=== PATIENT | male | born 1935 | race Caucasian/White ===

== ENCOUNTER 2022-11-21 09:38 | Emergency (ER) | payer MEDICARE, MEDICAID, SELFPAY ==
[2022-11-21] VITALS (12 sets, daily range): BP systolic 114–135; BP diastolic 64–88; PULSE 78–95; RESP 18–30; TEMP 36.8; O2SAT 95–99
--- NOTE | 2022-11-21 09:49 | W.ED.GENAD ---
Discharge Plan Disposition Patient Disposition: Home Condition: Stable Discharge Details Clinical Impression: Rash, Cellulitis of neck Primary Care Provider: Unknown,Unknown ED Provider: Debora Moe Home Meds and New Rx's Prescriptions: New prednisone 20 mg tablet See Rx Instructions .ROUTE .COMPLEX Qty: 18 0RF Rx Instructions: Take 3 tabs daily for 3 days, then 2 tabs daily for 3 days, then 1 tab daily for 3 days. clindamycin HCl 150 mg capsule 450 mg PO TID 7 Days Qty: 63 0RF Continued quetiapine 25 mg Tablet 25 mg PO HS latanoprost 0.005 % Drops 1 drp ophthalmic (eye) HS atorvastatin 80 mg Tablet 80 mg PO HS valacyclovir 1 gram Tablet 1,000 mg PO BID metoprolol succinate 100 mg Tablet Extended Release 24 Hr 100 mg PO DAILY amlodipine 5 mg Tablet 5 mg PO DAILY doxepin 10 mg Capsule 10 mg PO HS aspirin 81 mg Tablet,Delayed Release (Dr/Ec) 81 mg PO DAILY acetaminophen 500 mg Tablet 500 mg PO PRN PRN tamsulosin 0.4 mg Capsule 0.4 mg PO DAILY lisinopril 10 mg Tablet 10 mg PO DAILY brimonidine 0.2 % Drops 1 drp ophthalmic (eye) BID betamethasone dipropionate 0.05 % Cream 1 applic TOPICAL DAILY dorzolamide-timolol 22.3-6.8 mg/mL Drops 1 drp ophthalmic (eye) BID furosemide 20 mg Tablet 20 mg PO DAILY acetylcysteine [NAC] 600 mg Capsule 600 mg PO DAILY melatonin 5 mg Tablet 5 mg PO HS Discontinued prednisone 10 mg Tablet 10 mg PO DAILY doxycycline hyclate 100 mg Tablet 100 mg PO BID Discharge Instructions Instructions: Shingles (ED), Cellulitis (ED), Dermatitis (ED) Additional Instructions: Your rash may be consistent with shingles. It may be becoming secondarily infected with bacteria secondary to scratching allowing bacteria to enter the open wounds and cause a local skin infection. Drink plenty of fluids and get plenty of rest. Take Benadryl as needed and directed for itching. You are being sent home with a prescription for a higher dose of a steroid to take as directed until finished. Stop taking your current steroid dose of 10 mg. You are also being sent home with an antibiotic to take as directed until finished. Stop taking your current antibiotic doxycycline. Your urine sample shows some white blood cells. A urine culture is pending and you will be notified if it is positive for a urinary tract infection. Your CT neck imaging noted edema within the soft tissues but no evidence of abscess or other fluid collection. Your CT scan of your chest today showed no evidence of acute disease. You also tested negative for COVID, influenza and RSV. Call your bench manager to schedule follow-up appointment for reevaluation and for possible biopsy of your skin rash for further evaluation. Return immediately to the emergency department if you develop any worsening or new concerning symptoms. Discharge Data Discharge Date/Time-TO BE ENTERED AT DEPARTURE: 11/21/22 14:34 Discharge Physician: Debora Moe Medical Decision Making 1000 -- 87-year-old male with a history of hypertension, hyperlipidemia, pulmonary embolism, delusional disorder, BPH, anemia who resides at [facility] and presents for evaluation of a right-sided neck mass, right-sided neck lump and wheezing. Nursing staff from [facility] reports that patient has been seen at [facility] ER 3 times and diagnosed with shingles but they state his symptoms are worsening and they would like him reevaluated. Patient is oriented to person and place but not time. He is continually scratching the rash on the right side of his neck. The rash could certainly be consistent with shingles that may be secondarily infected due to frequent scratching. There are areas of excoriation and hyperpigmentation with pink granulation tissue. There is no evidence of abscess. There are areas of bleeding. I do not see an obvious circumscribed lump although the right side of his neck appears slightly more swollen. He does appear to have upper airway wheezing. Lungs are clear throughout. His oxygen saturation is 97% on room air. Will obtain screening labs, CT neck and CT chest. 1200 -- Labs and imaging reviewed. White blood cell count within normal limits. Normal electrolytes. Troponin negative. CT chest without contrast negative for acute findings. CT neck with contrast notes subcutaneous edema in the neck, right upper chest and right back but no evidence of abscess. Case discussed with Lali nursing attendant at [facility] --she states that patient was noted to have new onset of right-sided neck swelling and worsening weakness. She states he has been seen at [facility] a few times for increasing weakness and falls and diagnosed with shingles. She states he has been seen previously by dermatology and has been taking prednisone and doxycycline for his rash. Due to this complaint of weakness, will obtain a urinalysis. Discussed that his presentation could appear consistent with shingles with an overlying cellulitis. As he had no improvement with doxycycline, will switch to clindamycin. We will start a prescription with a higher steroid dose and then taper. Recommend he follow-up with dermatology. 1400 --urinalysis notes 5-10 WBCs, trace leukocyte esterase, rare bacteria, few epithelial cells, urine culture sent. Will await urine culture results before starting antibiotics for UTI. Nursing reports that patient has refused oral doses of steroids and Benadryl in addition to IV doses. He does have a history of dementia and psychosis. Will send prescriptions for prednisone and clindamycin electronically to his pharmacy. We will recommend to take Benadryl p.o. as needed. Usual and customary return precautions given prior to discharge. Medical Records Medical records reviewed: Yes I reviewed the patient's medical records. Imaging Data Radiologic Study: Radiologist's impression: CT NECK W CLINICAL HISTORY:? R sided neck rash, wheezing. ? TECHNIQUE:? Imaging Protocol: Axial computed tomography images with coronal and sagittal reformatted images were created and reviewed. CONTRAST MATERIAL:? Intravenous: Omnipaque 350 Contrast volume:100mL COMPARISON:? No exams were available for comparison? FINDINGS: The examination is limited due to patient motion artifact.? Orbits and orbital soft tissues:? Not wholly included on this examination.? No gross abnormality.? Visualized paranasal sinuses:? Mild mucosal thickening in the maxillary sinuses bilaterally.? The remaining visualized paranasal sinuses and mastoid air cells are clear.? Nasopharynx:? Within normal limits. Oropharynx: Within normal limits. Hypopharynx:? Within normal limits. Larynx:? Within normal limits. Retropharyngeal space: Within normal limits.? Parotids/submandibular:? Within normal limits. Thyroid gland:? Within normal limits. Lymphadenopathy:? There is scattered lymph nodes seen along the level one to level three all measuring less than 8 mm in short axis diameter which are physiologic in nature. Trachea: Within normal limits. Lung apices:? Within normal limits. Bones: Within normal limits for the patient's age.? Carotids/Jugular:? Within normal limits. Soft tissues: ? There is subcutaneous edema seen in the soft tissues in the right upper chest, right back and right neck.? No focal fluid collection is seen to suggest an abscess.? There is mild thickening of the skin in the right neck.? IMPRESSION: 1. Cellulitis involving the right neck, right upper chest and right back. 2. No evidence of an abscess. 3. Airway is patent. 4. Findings were discussed with Dr. Moe at 11:52 a.m. on 11/21/2022. CT CHEST WO CLINICAL HISTORY: ? wheezing, sob, r/o acute disease. ? TECHNIQUE:? Imaging protocol: Axial computed tomography images were obtained and coronal and sagittal reformatted images were created and reviewed. COMPARISON:? No exams were available for comparison FINDINGS: ?The examination is limited due to patient motion artifact. Tracheobronchial tree: Patent where visualized. Pulmonary parenchyma: No consolidation or dominant measurable mass. Scarring or atelectasis is seen in the right lung base.? There is elevation of the right hemidiaphragm.? Mediastinum and Bronwyn: No dominant adenopathy or fluid collection. The esophagus is unremarkable.There is a small hiatal hernia. Thyroid gland: Unremarkable. Pleura: No effusion or pneumothorax. Heart: The heart is not dilated. Coronary artery calcification and/or stents are present.? 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 No pericardial effusion. Aorta: Thoracic aorta non-dilated. Atherosclerosis is present. Upper abdomen:? Gallstones are present.? No biliary ductal dilatation. ? Lymph nodes: Within normal limits. Tubes, Catheters, and Lines: There is a cardiac pacer in place. Soft tissues: There is gynecomastia.? Bones:Within normal limits for the patient's age.? Evaluation is limited by patient motion artifact.? Sternal wires are in place. IMPRESSION: 1. Examination limited by patient motion artifact. 2. No acute pulmonary process. 3. Unremarkable tracheobronchial tree. 4. Cholelithiasis.? No biliary ductal dilatation. 5. Coronary artery disease and atherosclerosis. 6. Findings were discussed with the emergency department on 11/21/2022. Lab Data Lab results reviewed: Yes I reviewed the patient's lab results. Labs: 11/21/22 13:25 Urine - Reflex from Ua Urine Culture - Preliminary Gram Positive Kaylee,Mixed Laboratory Tests Range/Units 11/21/22 11/21/22 11/21/22 10:24 10:25 10:25 WBC (4.4-10.8) 10^3/uL 9.70 RBC (4.36-5.78) 10^6/uL 4.21 L Hgb (13.5-17.5) g/dL 13.1 L Hct (40.0-50.0) % 40.4 MCV (80-95) fL 96 H MCH (27.0-33.0) pg 31.1 MCHC (32.0-36.0) % 32.4 RDW (11.8-14.1) % 13.5 Plt Count (130-400) 10^3/uL 224 MPV (8.0-11.0) fL 11.2 H Immature Gran % 0.3 Neutrophils % 86.5 Lymphocytes % 4.0 Monocytes % 7.8 Eosinophils % 1.1 Basophils % 0.3 Nucleated RBC % (0.0-0.3) % 0.0 Absolute Neutrophils (1.2-6.7) 10^3/uL 8.38 H Absolute Lymphocytes (1.2-3.4) 10^3/uL 0.39 L Absolute Monocytes (0.1-0.8) 10^3/uL 0.76 Absolute Eosinophils (0.0-0.7) 10^3/uL 0.11 Absolute Basophils (0.0-0.2) 10^3/uL 0.03 Sodium (136-145) mmol/L 138 Potassium (3.5-5.1) mmol/L 4.4 Chloride (98-107) mmol/L 104 Carbon Dioxide (21.0-32.0) mmol/L 25.0 Anion Gap (3-11) mmol/L 9.0 BUN (7-18) mg/dL 40 H Creatinine (0.70-1.30) mg/dL 1.3 Est GFR (CKD-EPI 2020) (mL/min/1.73m2) 53.84 Glucose (74-106) mg/dL 154 H Calcium (8.5-10.1) mg/dL 9.5 Magnesium (1.8-2.4) mg/dL 2.0 Total Bilirubin (0.2-1.0) mg/dL 1.1 H AST (15-37) U/L 30 ALT (16-63) U/L 41 Alkaline Phosphatase (46-116) U/L 81 Troponin I (<or=60) ng/L < 50 Total Protein (6.4-8.2) g/dL 6.8 Albumin (3.4-5.0) g/dL 3.3 L Urine Color (Yellow) Urine Clarity (Clear) Urine pH (5-8) Ur Specific [place] (1.005-1.025) Urine Protein (Negative) mg/dL Urine Ketones (Negative) mg/dL Urine Blood (Negative) Urine Nitrite (Negative) Urine Bilirubin (Negative) Urine Urobilinogen (Up to 0.2) mg/dL Ur Leukocyte Esterase (Negative) Urine RBC (0-2) HPF Urine WBC (0-5) HPF Ur Epithelial Cells (Negative) HPF Urine Crystals (Negative) HPF Urine Bacteria (Negative) HPF Urine Casts (Negative) LPF Urine Mucus (Negative) Ur Culture Indicated? Urine Glucose (Negative) mg/dL COVID-19 Source SARS-CoV-2 (PCR) (Negative) HSV Source Description Cancelled HSV I DNA PCR Cancelled HSV II DNA PCR Cancelled Influenza Type A (PCR) (Negative) Influenza Type B (PCR) (Negative) RSV (PCR) (Negative) Range/Units 11/21/22 11/21/22 10:27 13:25 WBC (4.4-10.8) 10^3/uL RBC (4.36-5.78) 10^6/uL Hgb (13.5-17.5) g/dL Hct (40.0-50.0) % MCV (80-95) fL MCH (27.0-33.0) pg MCHC (32.0-36.0) % RDW (11.8-14.1) % Plt Count (130-400) 10^3/uL MPV (8.0-11.0) fL Immature Gran % Neutrophils % Lymphocytes % Monocytes % Eosinophils % Basophils % Nucleated RBC % (0.0-0.3) % Absolute Neutrophils (1.2-6.7) 10^3/uL Absolute Lymphocytes (1.2-3.4) 10^3/uL Absolute Monocytes (0.1-0.8) 10^3/uL Absolute Eosinophils (0.0-0.7) 10^3/uL Absolute Basophils (0.0-0.2) 10^3/uL Sodium (136-145) mmol/L Potassium (3.5-5.1) mmol/L Chloride (98-107) mmol/L Carbon Dioxide (21.0-32.0) mmol/L Anion Gap (3-11) mmol/L BUN (7-18) mg/dL Creatinine (0.70-1.30) mg/dL Est GFR (CKD-EPI 2020) (mL/min/1.73m2) Glucose (74-106) mg/dL Calcium (8.5-10.1) mg/dL Magnesium (1.8-2.4) mg/dL Total Bilirubin (0.2-1.0) mg/dL AST (15-37) U/L ALT (16-63) U/L Alkaline Phosphatase (46-116) U/L Troponin I (<or=60) ng/L Total Protein (6.4-8.2) g/dL Albumin (3.4-5.0) g/dL Urine Color (Yellow) Yellow Urine Clarity (Clear) Sl Cloudy Urine pH (5-8) 5.5 Ur Specific [place] (1.005-1.025) 1.015 Urine Protein (Negative) mg/dL Trace H Urine Ketones (Negative) mg/dL Negative Urine Blood (Negative) Trace-intact H Urine Nitrite (Negative) Negative Urine Bilirubin (Negative) Negative Urine Urobilinogen (Up to 0.2) mg/dL 0.2 Ur Leukocyte Esterase (Negative) Trace H Urine RBC (0-2) HPF 0-2 Urine WBC (0-5) HPF 5-10 Ur Epithelial Cells (Negative) HPF Few Urine Crystals (Negative) HPF Negative Urine Bacteria (Negative) HPF Rare Urine Casts (Negative) LPF 0-2 Hyaline Urine Mucus (Negative) Trace Ur Culture Indicated? Yes Urine Glucose (Negative) mg/dL Negative COVID-19 Source Nasopharynx SARS-CoV-2 (PCR) (Negative) Negative HSV Source Description HSV I DNA PCR HSV II DNA PCR Influenza Type A (PCR) (Negative) Negative Influenza Type B (PCR) (Negative) Negative RSV (PCR) (Negative) Negative HPI General Mode of arrival: wheelchair. Date/Time Provider Initiated Documentation: 11/21/22 09:40. Limitations to Documentation: altered mental status. Information obtained by: patient. HPI Narrative: Patient is an 87-year-old male who presents from [place] where he is a resident with a history of hypertension, hyperlipidemia, BPH, pulmonary embolism, delusional disorder presents for evaluation of a rash on the right side of his neck with concern of lump in the area and also a complaint of wheezing. Nurse from [facility] called states that patient had been taken to [facility] ER 3 times for evaluation of the rash and diagnosed with shingles. They are bringing him here for another opinion as they feel his symptoms may be due to another cause or worsening. Patient states he has had the rash for 2 years after a COVID-vaccine. He states the rash is both itchy and painful. Related Data Home Medications Medication Instructions Recorded Confirmed acetaminophen 500 mg tablet 500 mg PO PRN PRN 11/21/22 11/21/22 acetylcysteine 600 mg capsule (NAC) 600 mg PO DAILY 11/21/22 11/21/22 amlodipine 5 mg tablet 5 mg PO DAILY 11/21/22 11/21/22 aspirin 81 mg tablet,delayed 81 mg PO DAILY 11/21/22 11/21/22 release atorvastatin 80 mg tablet 80 mg PO HS 11/21/22 11/21/22 betamethasone dipropionate 0.05 % 1 applic topical DAILY 11/21/22 11/21/22 topical cream brimonidine 0.2 % eye drops 1 drp ophthalmic (eye) BID 11/21/22 11/21/22 clindamycin HCl 150 mg capsule 450 mg PO TID 7 days #63 caps 11/21/22 dorzolamide 22.3 mg-timolol 6.8 1 drp ophthalmic (eye) BID 11/21/22 11/21/22 mg/mL eye drops doxepin 10 mg capsule 10 mg PO HS 11/21/22 11/21/22 furosemide 20 mg tablet 20 mg PO DAILY 11/21/22 11/21/22 latanoprost 0.005 % eye drops 1 drp ophthalmic (eye) HS 11/21/22 11/21/22 lisinopril 10 mg tablet 10 mg PO DAILY 11/21/22 11/21/22 melatonin 5 mg tablet 5 mg PO HS 11/21/22 11/21/22 metoprolol succinate 100 mg 100 mg PO DAILY 11/21/22 11/21/22 tablet,extended release 24 hr prednisone 20 mg tablet See Rx Instructions .Route 11/21/22 .COMPLEX #18 tabs quetiapine 25 mg tablet 25 mg PO HS 11/21/22 11/21/22 tamsulosin 0.4 mg capsule 0.4 mg PO DAILY 11/21/22 11/21/22 valacyclovir 1 gram tablet 1,000 mg PO BID 11/21/22 11/21/22 Previous Rx's Medication Instructions Recorded clindamycin HCl 150 mg capsule 450 mg PO TID 7 days #63 caps 11/21/22 prednisone 20 mg tablet See Rx Instructions .Route 11/21/22 .COMPLEX #18 tabs Allergies Allergy/AdvReac Type Severity Reaction Status Date / Time No Known Allergies Allergy Unverified 11/21/22 10:01 General Stated Complaint: Cellulitis KRISTOPHER: 3 Review of Systems All systems reviewed & are unremarkable except as noted in HPI and below Constitutional Constitutional: Reports as per HPI, Denies chills and Denies fever(s) Eyes Eyes: Denies blurry vision ENT Ears, Nose, Mouth, and Throat: Denies dizziness, Denies sore throat and Denies throat swelling Cardiovascular Cardiovascular: Denies chest pain and Denies dyspnea Respiratory Respiratory: Denies cough, Denies dyspnea and Reports wheezing Gastrointestinal Gastrointestinal: Denies abdominal pain, Denies diarrhea and Denies vomiting Genitourinary Genitourinary: Denies hematuria and Denies dysuria Musculoskeletal Musculoskeletal: Denies back pain and Denies numbness Integumentary/Breasts Skin/Breast: Reports lesions and Reports rash Neurologic Neurologic: Denies dizziness, Denies localized weakness and Denies numbness Allergic/Immunologic Allergic/Immunologic: Denies throat swelling and Reports wheezing PFSH All Active Problems (Updated 11/21/22 @ 14:05 by Debora Moe DO) Rash (Acute) Cellulitis of neck (Acute) Medical History (Updated 11/21/22 @ 14:05 by Debora Moe DO) BPH (benign prostatic hyperplasia) Coronary artery disease Delusional disorder HTN (hypertension) Hx of hyperlipidemia Insomnia Kidney stones Pulmonary embolism Social History Smoking/Tobacco Use Status: Former Tobacco Use Smoking risk assessment performed?: Yes Alcohol Intake: former Substance use type: does not use Exam Const General: cooperative Orientation: alert, awake and oriented to person HENWA Head: normal to inspection Face and sinus: normal facial exam Eyes General: appearance normal, both eyes and all related structures Pupils: PERRL EOM: EOM intact bilaterally Neck Neck: normal visual inspection and No submandibular swelling Lymphatic: no lymphadenopathy noted Chest Chest: normal inspection of the chest and no tenderness Resp Effort & Inspection: normal respiratory effort and able to speak in complete sentences Auscultation: wheezes (upper airway) Cardio Rate: regular rate Rhythm: regular rhythm GI Inspection: normal to inspection Palpation: soft, not firm, not rigid and nontender Auscultation: hypoactive bowel sounds Skin Other: Excoriations and crusts noted with areas of hyperpigmentation, scaling and sloughing of skin noted to the right lateral neck, right shoulder, right upper back. There is surrounding pink granulation tissue and some areas have bleeding. There is no pus drainage or fluctuance noted. Patient noted to be scratching the area multiple times. Neuro General: patient alert, patient awake and patient oriented x3 Cognition: normal cognition Speech: speech normal Motor: muscle tone normal throughout Sensory Exam: no sensory deficits noted Extrem General: normal to inspection, full ROM, capillary refill normal, no calf tenderness bilaterally and no edema Psych Appearance: grossly normal Mental Status: mental status grossly normal Speech and Movement: speech and movement normal Affect: normal affect Course Vital Signs Vital signs: Vital Signs Temperature 98.2 F 11/21/22 09:44 Pulse 85 11/21/22 09:44 Respiratory Rate 24 11/21/22 09:44 Blood Pressure 114/88 11/21/22 09:44 Pulse Oximetry 95 11/21/22 09:44 Temperature 98.2 F 11/21/22 09:44 Pulse 85 11/21/22 09:44 Respiratory Rate 24 11/21/22 09:44 Respiratory Effort Normal 11/21/22 09:46 Blood Pressure 114/88 11/21/22 09:44 Pulse Oximetry 95 11/21/22 09:44 Oxygen Delivery Method Room Air 11/21/22 09:44 Oxygen Flow Rate 0 11/21/22 09:44 Pain Level 8 11/21/22 09:44
--- NOTE | 2022-11-21 10:15 | DI.CT_ITS ---
Exam(s) CT NECK W EXAM: CT NECK W CLINICAL HISTORY: R sided neck rash, wheezing. TECHNIQUE: Imaging Protocol: Axial computed tomography images with coronal and sagittal reformatted images were created and reviewed. CONTRAST MATERIAL: Intravenous: Omnipaque 350 Contrast volume:100mL COMPARISON: No exams were available for comparison FINDINGS: The examination is limited due to patient motion artifact. Orbits and orbital soft tissues: Not wholly included on this examination. No gross abnormality. Visualized paranasal sinuses: Mild mucosal thickening in the maxillary sinuses bilaterally. The rem aining visualized paranasal sinuses and mastoid air cells are clear. Nasopharynx: Within normal limits. Oropharynx: Within normal limits. Hypopharynx: Within normal limits. Larynx: Within normal limits. Retropharyngeal space: Within normal limits. Parotids/submandibular: Within normal limits. Thyroid gland: Within normal limits. Lymphadenopathy: There is scattered lymph nodes seen along the level one to level three all measurin g less than 8 mm in short axis diameter which are physiologic in nature. Trachea: Within normal limits. Lung apices: Within normal limits. Bones: Within normal limits for the patient's age. Carotids/Jugular: Within normal limits. Soft tissues: There is subcutaneous edema seen in the soft tissues in the right upper chest, right back and right neck. No focal fluid collection is seen to suggest an abscess. There is mild thicken ing of the skin in the right neck. IMPRESSION: 1. Cellulitis involving the right neck, right upper chest and right back. 2. No evidence of an abscess. 3. Airway is patent. 4. Findings were discussed with Dr. Moe at 11:52 a.m. on 11/21/2022. RADIATION DOSE DELIVERED: 814.79mGy.cm Total DLP 814.79mGy.cm Total DLP DATA REPOSITORY: All CT scans at this facility are submitted to the National Radiology Data Registry (NRDR) Dose Index Registry (DIR) with the [employer] ([employer]). RADIATION OPTIMIZATION: All CT scans at this facility use at least one of these dose optimization te chniques: automated exposure control; mA and/or kV adjustment per patient size (includes targeted exa ms where dose is matched to clinical indication); or iterative reconstruction.
--- NOTE | 2022-11-21 10:15 | DI.CT_ITS ---
Exam(s) CT CHEST WO EXAM: CT CHEST WO CLINICAL HISTORY: wheezing, sob, r/o acute disease. TECHNIQUE: Imaging protocol: Axial computed tomography images were obtained and coronal and sagittal reformatted images were created and reviewed. COMPARISON: No exams were available for comparison FINDINGS: The examination is limited due to patient motion artifact. Tracheobronchial tree: Patent where visualized. Pulmonary parenchyma: No consolidation or dominant measurable mass. Scarring or atelectasis is seen i n the right lung base. There is elevation of the right hemidiaphragm. Mediastinum and Bronwyn: No dominant adenopathy or fluid collection. The esophagus is unremarkable.There is a small hiatal hernia. Thyroid gland: Unremarkable. Pleura: No effusion or pneumothorax. Heart: The heart is not dilated. Coronary artery calcification and/or stents are present. There is a pacemaker in place. No pericardial effusion. Aorta: Thoracic aorta non-dilated. Atherosclerosis is present. Upper abdomen: Gallstones are present. No biliary ductal dilatation. Lymph nodes: Within normal limits. Tubes, Catheters, and Lines: There is a cardiac pacer in place. Soft tissues: There is gynecomastia. Bones:Within normal limits for the patient's age. Evaluation is limited by patient motion artifact. Sternal wires are in place. IMPRESSION: 1. Examination limited by patient motion artifact. 2. No acute pulmonary process. 3. Unremarkable tracheobronchial tree. 4. Cholelithiasis. No biliary ductal dilatation. 5. Coronary artery disease and atherosclerosis. 6. Findings were discussed with the emergency department on 11/21/2022. RADIATION DOSE DELIVERED: Total DLP Total DLP DATA REPOSITORY: All CT scans at this facility are submitted to the National Radiology Data Registry (NRDR) Dose Index Registry (DIR) with the [employer] ([employer]). RADIATION OPTIMIZATION: All CT scans at this facility use at least one of these dose optimization te chniques: automated exposure control; mA and/or kV adjustment per patient size (includes targeted exa ms where dose is matched to clinical indication); or iterative reconstruction.
[2022-11-21] MEDS: Normal Saline 250 ML 500 ML IV (10:37)
[2022-11-21 10:43] LABS: Abs Immature Grans 0.03 10^3/uL (0.0-0.06); Absolute Basophil Count 0.03 10^3/uL (0.0-0.2); Absolute Eosinophil Count 0.11 10^3/uL (0.0-0.7); Absolute Lymphocyte Count 0.39 10^3/uL (1.2-3.4); Absolute Monocyte Count 0.76 10^3/uL (0.1-0.8); Absolute Neutrophil Count 8.38 10^3/uL (1.2-6.7); Basophils % 0.3; Eosinophils % 1.1; HCT 40.4 % (40.0-50.0); HGB 13.1 g/dL (13.5-17.5); Immature Grans % 0.3; MCH 31.1 pg (27.0-33.0); MCHC 32.4 % (32.0-36.0); MCV 96 fL (80-95); MPV 11.2 fL (8.0-11.0); Monocytes % 7.8; Neutrophils % 86.5; Platelet Count 224 10^3/uL (130-400); RBC 4.21 10^6/uL (4.36-5.78); RDW 13.5 % (11.8-14.1); RDW-SD 47.4 fL
[2022-11-21 11:03] LABS: ALT 41 U/L (16-63); AST 30 U/L (15-37); Albumin 3.3 g/dL (3.4-5.0); Alkaline Phosphatase 81 U/L (46-116); BUN 40 mg/dL (7-18); Bilirubin, Total 1.1 mg/dL (0.2-1.0); CREATININE 1.3 mg/dL (0.70-1.30); Calcium 9.5 mg/dL (8.5-10.1); Chloride 104 mmol/L (98-107); Estimated GFR 53.84 (mL/min/1.73m2); Glucose 154 mg/dL (74-106); Potassium 4.4 mmol/L (3.5-5.1); Sodium 138 mmol/L (136-145); Total Protein 6.8 g/dL (6.4-8.2); Troponin I < 50 ng/L (<or=60)
[2022-11-21] MEDS: Normal Saline - Diluent 50 ML VIAL IJ (11:22)
[2022-11-21] MEDS: Omnipaque 350 MG/ML 500 ML BTL-Imaging package IJ (11:23)
[2022-11-21 11:57] LABS: COVID-19 PCR Negative (Negative); Influenza A PCR Negative (Negative); Influenza B PCR Negative (Negative); RSV PCR Negative (Negative)
[2022-11-21 12:05] LABS: Source Nasopharynx
[2022-11-21 13:35] LABS: Bilirubin Negative (Negative); Blood Trace-intact (Negative); Clarity Sl Cloudy (Clear); Glucose Negative (Negative); Ketones Negative (Negative); Leukocyte Esterase Trace (Negative); Nitrite Negative (Negative); Specific Gravity 1.015 (1.005-1.025); Urobilinogen 0.2 mg/dL (Up to 0.2); pH 5.5 (5-8)
[2022-11-21 13:43] LABS: Bacteria Rare HPF (Negative); C & S Indicated? Yes; Casts 0-2 Hyaline LPF (Negative); Crystals Negative HPF (Negative); Epithelial Cells Few HPF (Negative); Mucus Trace (Negative); RBC 0-2 HPF (0-2)
--- NOTE | 2022-11-23 11:19 | NUR.NOTE ---
Nursing Note: Accessed chart to look up whether or not on antibiotic.
[2022-11-25 16:43] LABS: HSV 1 PCR, B Negative (Negative)
[2022-11-25 16:45] LABS: HSV 2 PCR, B Negative (Negative)
--- NOTE | 2022-11-28 09:11 | NUR.NOTE ---
HSV result given to Audra at [facility]
== END 2022-11-21 14:34 | disposition home or self-care (01) ==
PROVIDERS: Emergency Provider Physician Assistant
DX: L03.221 Cellulitis of neck (principal); R21 Rash and other nonspecific skin eruption; L81.9 Disorder of pigmentation, unspecified; F03.90 Unspecified dementia, unspecified severity, without behavioral disturbance, psychotic disturbance, mood disturbance, and anxiety; F29 Unspecified psychosis not due to a substance or known physiological condition; I10 Essential (primary) hypertension; I25.10 Atherosclerotic heart disease of native coronary artery without angina pectoris; Z86.711 Personal history of pulmonary embolism; Z20.822 Contact with and (suspected) exposure to COVID-19; Z79.82 Long term (current) use of aspirin
CPT/HCPCS: 36415; 70491; 71250; 80053; 87529; 87637; 96361; 96374; 96375; 96376; 99285; 81003; 81015; 83735; 84484; 85025; 87086; 99284